=== PATIENT | male | born 1945 | race African-American/Black ===

== ENCOUNTER → 2017-08-05 | Outpatient (CLI) | payer MEDICARE, OTHER | END | disposition home or self-care (01) | LOC: KCIC 15:44 | DX: M17.11 Unilateral primary osteoarthritis, right knee (principal); M25.461 Effusion, right knee; M75.31 Calcific tendinitis of right shoulder | CPT/HCPCS: 73030; 73562 ==

== ENCOUNTER 2018-11-01 12:23 | Emergency (ER) | payer MEDICARE, OTHER ==
--- NOTE | 2018-11-01 12:44 | PHYS DOC ---
Adult General Chief Complaint Chief Complaint: CPR/FULL ARREST HPI HPI Patient is a 73 year old male who brought by EMS with CPR in progress after cardiorespiratory arrest. Patient stated the patient had complaining of intermittent episodes of chest pain for 3 weeks and had negative stress tests an d EKG at the [facility]. Patient complaining of chest pain this morning and had decrease in this cardiac arrest with home CPR by his about 5 minutes prior to arrival of EMS at 1113. Patient had shockable rhythm and had 3 shocks and several doses of epinephrine. EMS called this emergency room at 1157 and requesting for stopping CPR for a 63-year-old patient with 20 minutes of CPR and was advised to continue CPR and bleeding patient to emergency room. Patient arrived at 1221 with CPR in progress and LMA tube in place. Review of Systems Review of Systems Unable to obtain because of CPR in progress Allergies Allergies Allergies Coded Allergies Type Severity Reaction Last Updated Verified Unable to Assess 11/01/18 No Physical Exam Physical Exam Constitutional: Unresponsive CPR in progress HENT: Atraumatic. Eyes: Fixed dilated pupil. Neck: Atraumatic Cardiovascular: CPR in progress, no splint most cardiac activity without CPR Lungs & Thorax: No spontaneous respiration. Abdomen:Atraumatic. Extremities: Atraumatic, no spontaneous pulses without CPR Neurologic: Unresponsive. Psychologic: Unresponsive. EKG EKG [] Radiology/Procedures Radiology/Procedures [] Course & Med Decision Making Course & Med Decision Making Evaluation of patient in ER 73-year-old male patient who has cardiovascular respiratory arrest after complaining of chest pain and brought him to ER with CPR in progress. Patient pronounced at 12:30. Please see CODE BLUE report for details of CPR in ER. Dr. Dorado was informed at 1335 for optoelectronics engineer case and he agreed to write certificate. Dragon Disclaimer Dragon Disclaimer This electronic medical record was generated, in whole or in part, using a voice recognition dictation system. Departure Departure Impression: Primary Impression: Cardiorespiratory arrest Disposition: 20 Condition: Referrals: MANUELA CARVER APRN (PCP) Critical Care Time Critical care time was 30 minutes exclusive of procedures. Intubation Procedure Intubation Procedure Intub Indication: Respiratory failure Consent: Unable to give consent due to emergent nature. Medications Used: see nursing note Procedure: The patient was in supine position with CPR in progress. Intubation was performed with glidescope and direct cord visualization with 7.5 endotracheal tube by human resources administrator student Marito Hastings at 1226 and my supervision . Initial confirmation of placement included bilateral breath sounds, tube fogging, adequate chest rise. Complications: none. DOMINGO RODRIGUES MD Nov 01, 2018 12:44
== END 2018-11-01 17:00 | disposition expired ==
LOC: ER 12:23
DX: I46.9 Cardiac arrest, cause unspecified (principal)
CPT/HCPCS: 31500; 92950; 99291-25